=== PATIENT | male | born 1955 | race Caucasian/White ===

== ENCOUNTER 2016-07-12 19:17 | Emergency (ER) | payer MEDICAID, OTHER ==
[~2016-07-12] VITALS: Ht 175.3 cm; Wt 95.0 kg
[~2016-07-12 19:17] MED LIST: CIPR-264; CLON0.1T; HYDR25TA; METO-298
[2016-07-12 21:08] LABS: BASOPHILS % 0.6 % (0.0-2.0); EOSINOPHILS % 6.1 % (0.0-5.0); HEMATOCRIT. 42.8 % (42.0-52.0); LYMPHOCYTES % 13.8 % (20.0-50.0); MEAN CORPUSCULAR HEMOGLOBIN 29.8 pg (28.0-32.0); MEAN CORPUSCULAR HGB CONC 34.9 g/dL (31.0-37.0); MEAN CORPUSCULAR VOLUME 85.4 fL (80.0-94.0); MEAN PLATELET VOLUME 7.5 fl (7.4-10.4); MONOCYTES % 9.9 % (2.0-8.0); NEUTROPHILS % 69.6 % (40.0-76.0); PLATELET 213 x1000/uL (130-400); RED BLOOD CELL COUNT 5.02 mill/uL (4.7-6.1); RED CELL DISTRIBUTION WIDTH 13.6 % (11.6-14.6)
[2016-07-12 21:13] LABS: CHLORIDE 95 mEq/L (98-107); INDEX HEMOLYSI 1 (1-3); INDEX ICTERIC 1 (1-4); INDEX LIPEMIC 1 (1-3)
[2016-07-12 21:16] LABS: INR 1.1; PROTHROMBIN TIME 11.4 sec
[2016-07-12 21:19] LABS: ALBUMIN 4.1 g/dL (3.4-5.0); ANION GAP 11; CALCIUM 8.9 mg/dL (8.5-10.1); CARBON DIOXIDE 30 mEq/L (21-32); LIPASE 175 IU/L (73-393); UREA NITROGEN BLOOD 19 mg/dL (7-21)
[2016-07-12 21:22] LABS: ALANINE AMINOTRANSFERASE 39 IU/L (13-61); eGFR > 60 mL/min (>60)
[2016-07-12 22:00] VITALS: BP 148/79
== END 2016-07-12 23:19 | disposition home or self-care (01) ==
LOC: ER 19:17
DX: K21.9 Gastro-esophageal reflux disease without esophagitis (principal); R14.1 Gas pain; Z88.0 Allergy status to penicillin; I10 Essential (primary) hypertension; E78.00 Pure hypercholesterolemia, unspecified; Z98.890 Other specified postprocedural states
CPT/HCPCS: 36415; 80053; 83690; 85025; 85610; 99284

== ENCOUNTER 2016-10-17 15:27 | Emergency (ER) | payer OTHER ==
[~2016-10-17] VITALS: Ht 172.7 cm; Wt 80.0 kg
[2016-10-17 15:30] VITALS: BP 128/67
== END 2016-10-17 18:00 | disposition left against medical advice (07) ==
LOC: ER 15:42
DX: M54.5 Low back pain (principal); M79.661 Pain in right lower leg; Z53.21 Procedure and treatment not carried out due to patient leaving prior to being seen by health care provider

== ENCOUNTER 2017-02-23 09:52 | Inpatient (IN) | payer OTHER ==
[~2017-02-23] VITALS: Ht 180.3 cm; Wt 106.1 kg
[~2017-02-23 09:52] MED LIST changes: -CLON0.1T; +CLON0.1T PO; -METO-298; +METO-385
[2017-02-23 11:07] LABS: BASOPHILS % 0.6 % (0.0-2.0); EOSINOPHILS % 2.7 % (0.0-5.0); HEMATOCRIT. 45.4 % (42.0-52.0); HEMOGLOBIN. 15.6 g/dL (14.0-18.0); LYMPHOCYTES % 9.2 % (20.0-50.0); MEAN CORPUSCULAR HEMOGLOBIN 28.9 pg (28.0-32.0); MEAN CORPUSCULAR VOLUME 84.4 fL (80.0-94.0); MEAN PLATELET VOLUME 7.6 fl (7.4-10.4); MONOCYTES % 10.4 % (2.0-8.0); NEUTROPHILS % 77.1 % (40.0-76.0); PLATELET 221 x1000/uL (130-400); RED BLOOD CELL COUNT 5.39 mill/uL (4.7-6.1); RED CELL DISTRIBUTION WIDTH 14.3 % (11.6-14.6)
[2017-02-23 11:17] LABS: INR 1.1; PARTIAL THROMBOPLASTIN TIME 24.7 sec (23.4-31.0); PROTHROMBIN TIME 11.3 sec (9.4-11.6)
[2017-02-23 11:28] LABS: CARBON DIOXIDE 29 mEq/L (21-32); CHLORIDE 96 mEq/L (98-107)
[2017-02-23 11:52] LABS: TROPONIN I 0.55 ng/mL (0.00-0.04)
[2017-02-23] MEDS ORDERED: ASPIRIN 325MG TABLET PO ONE (12:15)
[2017-02-23] MEDS ORDERED: PANTOPRAZOLE SODIUM 40 MG/VIAL IV ONE (13:00)
[2017-02-23] MEDS ORDERED: ENOXAPARIN 40MG/0.4ML SYR SUBCUT SCH (14:15)
[2017-02-23] MEDS ORDERED: ACETAMINOPHEN 325MG TABLET PO PRN (14:15)
[2017-02-23] MEDS ORDERED: ONDANSETRON HCL 4MG/2ML VIAL IV PRN (14:15)
[2017-02-23] MEDS ORDERED: IPRATROPIUM/ALBUTEROL 0.5-3(2.5)MG/3ML NEB INH PRN (14:15)
[2017-02-23] MEDS ORDERED: MAGNESIUM/ALUMINUM HYDROXIDE/SIMETHICONE 30ML UDC PO PRN (14:15)
[2017-02-23] MEDS ORDERED: CLONIDINE 0.1MG TABLET PO PRN (14:15)
[2017-02-23] MEDS ORDERED: HYDROCODONE/ACETAMINOPHEN 5/325MG TABLET PO PRN (14:15)
[2017-02-23 15:00] VITALS: BP 153/79
[2017-02-23] MEDS ORDERED: ASPI-1159 PO (15:45)
[2017-02-23] MEDS ORDERED: LOSA50TA20 PO (15:45)
[2017-02-23] MEDS ORDERED: ATOR40TA70 PO (15:45)
[2017-02-23 16:00] VITALS: BP 142/84
[2017-02-23 20:00] VITALS: BP 155/79
[2017-02-23] MEDS: HYDRALAZINE HCL 50MG TABLET PO SCH (20:29)
[2017-02-23] MEDS: ENOXAPARIN 30MG/0.3ML SYR SUBCUT SCH (20:30)
[2017-02-23] MEDS: METOPROLOL TARTRATE 50MG TABLET PO SCH (20:32)
[2017-02-23] MEDS ORDERED: CLONIDINE 0.3MG TABLET PO SCH (21:00)
[2017-02-23] MEDS ORDERED: ATORVASTATIN CALCIUM 40MG TABLET PO SCH (21:00)
[2017-02-24] VITALS: BP_SYST 125; BP_SYST 134; BP_DIAS 67; BP_DIAS 68
[2017-02-24 00:15] LABS: CLARITY URINE CLEAR (CLEAR); COLOR URINE YELLOW (YELLOW); KETONES URINE NEGATIVE (NEGATIVE); LEUKOCYTE ESTERASE URINE NEGATIVE (NEGATIVE); NITRITE URINE NEGATIVE (NEGATIVE); OCCULT BLOOD URINE NEGATIVE (NEGATIVE); PROTEIN URINE NEGATIVE (NEGATIVE); SPECIFIC GRAVITY URINE 1.011 (1.005-1.030); UROBILINOGEN URINE 0.2 E.U./dL (0.2-1.0)
[2017-02-24 00:54] LABS: *AMPHETAMINES SCREEN URINE NEGATIVE (NEGATIVE); *BARBITURATES SCREEN URINE NEGATIVE (NEGATIVE); *BENZODIAZEPINES SCREEN URINE NEGATIVE (NEGATIVE); *COCAINE SCREEN URINE NEGATIVE (NEGATIVE); CANNABINOID URINE SCREEN NEGATIVE (NEGATIVE); METHADONE URINE SCREEN NEGATIVE (NEGATIVE); PHENCYCLIDINE URINE SCREEN NEGATIVE (NEGATIVE)
[2017-02-24 01:03] LABS: OPIATES URINE SCREEN NEGATIVE (NEGATIVE)
[2017-02-24 01:47] LABS: CARBON DIOXIDE 26 mEq/L (21-32); CHLORIDE 96 mEq/L (98-107); CREATINE KINASE 134 IU/L (39-308); CREATINE KINASE MB FRACTION 5.4 ng/mL (0.5-3.6)
[2017-02-24 01:56] LABS: TROPONIN I 0.78 ng/mL (0.00-0.04)
[2017-02-24] MEDS: HYDRALAZINE HCL 50MG TABLET PO SCH ×2 (06:04→13:21)
[2017-02-24 08:00] VITALS: BP 153/74
[2017-02-24 08:30] LABS: CREATINE KINASE MB FRACTION 4.9 ng/mL (0.5-3.6)
[2017-02-24] MEDS ORDERED: LOSARTAN POTASSIUM 50 MG TABLET PO SCH (09:00)
[2017-02-24] MEDS ORDERED: ASPIRIN 81MG EC TABLET PO SCH (09:00)
[2017-02-24] MEDS ORDERED: TRIAMTERENE/HYDROCHLOROTHIAZIDE 37.5/25MG CAPSULE PO SCH (09:00)
[2017-02-24] MEDS: ENOXAPARIN 30MG/0.3ML SYR SUBCUT SCH (09:41)
[2017-02-24] MEDS: METOPROLOL TARTRATE 50MG TABLET PO SCH (09:42)
[2017-02-24 10:18] LABS: TROPONIN I 0.74 ng/mL (0.00-0.04)
[2017-02-24 12:00] VITALS: BP 143/83
[2017-02-24] MEDS ORDERED: REGADENOSON 0.4 MG/5 ML IV ONE (12:45)
[2017-02-24 16:00] VITALS: BP 155/89
== END 2017-02-24 16:40 | disposition left against medical advice (07) | DRG 199 ==
LOC: ER 10:25 → 7WST 12:16 → ENRESERV 13:43
PROVIDERS: ADMIT Internal Medicine; ATTEND Internal Medicine
DX: I16.0 Hypertensive urgency (principal); E87.1 Hypo-osmolality and hyponatremia; E78.5 Hyperlipidemia, unspecified; E78.00 Pure hypercholesterolemia, unspecified; I10 Essential (primary) hypertension; Z88.0 Allergy status to penicillin; Z79.899 Other long term (current) drug therapy; Z53.21 Procedure and treatment not carried out due to patient leaving prior to being seen by health care provider
CPT/HCPCS: 36415; 71010; 80048; 80053; 80061; 80305; 81003; 82550; 82553; 83690; 83735; 83880; 84443; 84484; 85025; 85610; 85730; 93005; 93306; 93970; 96374; 99291; C9113; J1650

== ENCOUNTER 2017-05-01 22:18 | Emergency (ER) | payer OTHER ==
[~2017-05-01] VITALS: Ht 180.3 cm; Wt 90.0 kg
[~2017-05-01 22:18] MED LIST changes: +ASPI-1159 PO; +ATOR40TA70 PO; -CIPR-264; +LOSA50TA20 PO
[2017-05-01] MEDS ORDERED: CLONIDINE 0.2MG TABLET PO ONE (23:45)
[2017-05-02 00:34] LABS: CHLORIDE 86 mEq/L (98-107); HEMATOCRIT. 42.6 % (42.0-52.0); HEMOGLOBIN. 14.6 g/dL (14.0-18.0); MEAN CORPUSCULAR HEMOGLOBIN 28.8 pg (28.0-32.0); MEAN PLATELET VOLUME 7.8 fl (7.4-10.4); PLATELET 159 x1000/uL (130-400); RED BLOOD CELL COUNT 5.07 mill/uL (4.7-6.1); RED CELL DISTRIBUTION WIDTH 13.9 % (11.6-14.6)
[2017-05-02 00:52] LABS: TROPONIN I 0.59 ng/mL (0.00-0.04)
[2017-05-02] MEDS ORDERED: ASPIRIN 325MG EC TABLET PO ONE (01:15)
[2017-05-02] MEDS ORDERED: ENOXAPARIN 100MG/ML SYR SUBCUT ONE (01:15)
[2017-05-02 02:50] LABS: PLATELET ESTIMATE NORMAL
[2017-05-02 05:35] VITALS: BP 155/78
== END 2017-05-02 05:40 | disposition left against medical advice (07) ==
LOC: ER 22:32 → ENRESERV 05-02 05:25 → CANRESERV 05-02 05:25 → ER 05-02 05:40 → CANBEDREQ 05-02 06:03
DX: I10 Essential (primary) hypertension (principal); I21.4 Non-ST elevation (NSTEMI) myocardial infarction; R73.9 Hyperglycemia, unspecified; E87.1 Hypo-osmolality and hyponatremia; E87.8 Other disorders of electrolyte and fluid balance, not elsewhere classified; Z88.0 Allergy status to penicillin; Z79.01 Long term (current) use of anticoagulants; Z79.82 Long term (current) use of aspirin; Z98.890 Other specified postprocedural states
CPT/HCPCS: 36415; 71045; 80048; 84484; 85025; 93005; 96372; 99291; J1650

== ENCOUNTER 2023-01-26 14:44 | Emergency (ER) | payer MEDICARE, MEDICAID ==
[~2023-01-26] VITALS: Ht 177.8 cm; Wt 91.0 kg
[~2023-01-26 14:44] MED LIST changes: -ASPI-1159 PO; +ASPI-1497 PO; -LOSA50TA20 PO; +LOSA50TA41 PO
[2023-01-26 14:50] VITALS: TEMP 98.2; O2SAT 98
[2023-01-26] MEDS ORDERED: KETOROLAC 60MG/2ML VIAL IM ONE (15:15)
[2023-01-26] MEDS ORDERED: MORPHINE SULFATE 10 MG/ML CPJ IM ONE (15:15)
[2023-01-26] MEDS ORDERED: ONDANSETRON 4MG ODT PO ONE (15:15)
[2023-01-26 16:00] LABS: BASOPHILS % 0.7 % (0.0-2.0); EOSINOPHILS % 3.2 % (0.0-5.0); HEMATOCRIT. 40.7 % (42.0-52.0); HEMOGLOBIN. 13.8 g/dL (14.0-18.0); MEAN CORPUSCULAR HEMOGLOBIN 29.4 pg (28.0-32.0); MEAN CORPUSCULAR HGB CONC 33.8 g/dL (31.0-37.0); MEAN CORPUSCULAR VOLUME 86.9 fL (80.0-94.0); MEAN PLATELET VOLUME 7.9 fl (7.4-10.4); NEUTROPHILS % 75.1 % (40.0-76.0); PLATELET 219 x1000/uL (130-400); RED BLOOD CELL COUNT 4.69 mill/uL (4.7-6.1); RED CELL DISTRIBUTION WIDTH 13.9 % (11.6-14.6); WHITE BLOOD COUNT 8.7 x1000/uL (4.5-11.0)
[2023-01-26 16:33] LABS: ALANINE AMINOTRANSFERASE 28 IU/L (10-49); ALBUMIN 4.1 g/dL (3.2-4.8); ASPARTATE AMINOTRANSFERASE 22 IU/L (<34); BILIRUBIN TOTAL 0.6 mg/dL (0.1-1.0); CALCIUM 9.1 mg/dL (8.7-10.4); CARBON DIOXIDE 24 mEq/L (21-32); CHLORIDE 104 mEq/L (98-107); GLUCOSE 174 mg/dL (70-105); PHOSPHORUS 2.7 mg/dL (2.5-4.9); POTASSIUM 3.7 mEq/L (3.5-5.1); PROTEIN TOTAL 7.5 g/dL (6.0-8.3); SODIUM 137 mEq/L (136-145); UREA NITROGEN BLOOD 13 mg/dL (9-23)
[2023-01-26 16:37] LABS: TROPONIN I HIGH SENSITIVITY 354 ng/L (3.0-53)
[2023-01-26 17:20] LABS: BETA HYDROXYBUTYRATE < 0.1 mMol/L (0.0-0.3)
[2023-01-26] MEDS ORDERED: ONDANSETRON 4MG ODT PO NR (18:15)
[2023-01-26] MEDS ORDERED: KETOROLAC 60MG/2ML VIAL IM NR (18:15)
[2023-01-26] MEDS ORDERED: ASPIRIN 81MG TABLET PO ONE (18:30)
[2023-01-26 21:28] LABS: TROPONIN I HIGH SENSITIVITY 350 ng/L (3.0-53)
[2023-01-26 21:49] VITALS: BP 126/75; PULSE 74; RESP 16
== END 2023-01-26 21:50 | disposition home or self-care (01) ==
LOC: ER 14:44 → EDBEDREQ 17:32 → ER 21:50 → CANBEDREQ 01-27 14:15
DX: I21.3 ST elevation (STEMI) myocardial infarction of unspecified site (principal); I10 Essential (primary) hypertension; E11.9 Type 2 diabetes mellitus without complications; Z88.0 Allergy status to penicillin
CPT/HCPCS: 99285; 74176; 80053; 82010; 83690; 83735; 84100; 85025; 84484; 36415; 93005; 96372; Q0162; J1885; J2270